=== PATIENT | female | born 1960 | race Caucasian/White ===

== ENCOUNTER 2019-04-05 12:33 | Emergency (ER) | payer MEDICARE ==
[~2019-04-05] VITALS: Ht 154.9 cm; Wt 60.9 kg
[~2019-04-05 12:33] MED LIST: COZAAR50 MG PO; CYMBALTA60 MG PO; KLONOPIN0.5 MG PO; LORTAB 7.5/325; NEXIUM40 MG PO; PRAVACHOL40 MG PO
[2019-04-05 12:36] VITALS: Ht 154.9 cm; Wt 60.9 kg
[2019-04-05] MEDS ORDERED: TOPROL XL50 MG PO (12:40)
[2019-04-05] MEDS ORDERED: VITAMIN D2000 UNIT PO (12:41)
[2019-04-05] MEDS ORDERED: LISINOPRIL5 MG PO (12:41)
[2019-04-05] MEDS ORDERED: KLONOPIN0.5 MG PO (12:41)
[2019-04-05] MEDS ORDERED: IMITREX50 MG PO (12:42)
[2019-04-05] MEDS ORDERED: MULTI-DAY VITAM1 TAB PO (12:42)
[2019-04-05] MEDS ORDERED: [UNRECOGNIZED DRUG - OTHER] (12:44)
[2019-04-05 13:20] LABS: BASOPHILS 0.7 % (0-2); EOSINOPHILS 3.1 % (0-7); HEMOGLOBIN 12.8 g/dL (12-16); IMMATURE GRANULOCYTES 0.2 % (0-5); LYMPHOCYTES 40.5 % (15-50); MCH 31.6 pg (26.0-34.0); MCHC 34.6 g/dL (31.0-37.0); MCV 91.4 fL (80.0-100.0); MEAN PLATELET VOLUME 8.2 fL (7.4-10.4); NEUTROPHILS 44.5 % (40-80); PLATELET COUNT 223 10x3/uL (130-400); RBC 4.05 10x6/uL (4.00-5.40); RDW 13.1 % (11.5-14.5); WBC 4.5 10x3/uL (4.8-10.8)
[2019-04-05 13:34] LABS: APPEARANCE CLEAR (CLEAR); BILIRUBIN NEGATIVE (NEGATIVE); COLOR YELLOW (YELLOW); GLUCOSE NEGATIVE (NEGATIVE); KETONE NEGATIVE (NEGATIVE); NITRITE NEGATIVE (NEGATIVE); PROTEIN NEGATIVE (NEGATIVE); UROBILINOGEN NORMAL (NORMAL); WHITE CELLS - URINE 0-5 /hpf (0-5)
[2019-04-05 13:34] LABS: ALBUMIN 3.8 g/dL (3.4-5.0); ALKALINE PHOSPHATASE 59 U/L (46-116); ALT (SGPT) 30 U/L (10-68); CALC OSMOLALITY 267 mosm/kg (275-300); CALCIUM 8.6 mg/dL (8.5-10.1); CARBON DIOXIDE 28.7 mmol/L (21.0-32.0); CHLORIDE - SERUM 100 mmol/L (98-107); CREATININE - SERUM 0.7 mg/dL (0.6-1.3); GLUCOSE 89 mg/dL (74-106); POTASSIUM - SERUM 4.4 mmol/L (3.5-5.1); PROTEIN - SERUM 6.8 g/dL (6.4-8.2); SODIUM 136 mmol/L (136-145); UREA NITROGEN 4 mg/dL (7-18); eGFR NON AFRICAN AMERICAN > 90 mL/min (90-120)
[2019-04-05 13:35] LABS: BACTERIA MODERATE /hpf (NONE SEEN); EPITHELIAL CELLS 0-5 /hpf (0-5); MUCUS <1+ /lpf (NONE SEEN)
[2019-04-05 13:37] LABS: AMYLASE - SERUM 74 U/L (25-115); LIPASE 217 U/L (73-393); TROPONIN-I < 0.017 ng/mL (0.000-0.060)
[2019-04-05] MEDS ORDERED: KEFLEX500 MG PO (15:12)
[2019-04-05] MEDS ORDERED: MACROBID100 MG PO (15:12)
[2019-04-05] MEDS ORDERED: PHENAZOPYRIDIN200 MG PO (15:13)
[2019-04-05 15:54] VITALS: BP 158/73
== END 2019-04-05 15:55 | disposition home or self-care (01) ==
LOC: D.ER 12:33
PROVIDERS: Family Medicine
DX: R10.30 Lower abdominal pain, unspecified (principal); R16.0 Hepatomegaly, not elsewhere classified; R11.0 Nausea; N39.0 Urinary tract infection, site not specified

== ENCOUNTER → 2019-04-14 07:39 | Outpatient (CLI) | payer MEDICARE, MEDICAID ==
[2019-04-05 12:36] VITALS: BMI 25.3
[~2019-04-14 07:39] MED LIST changes: +IMITREX50 MG PO; +KEFLEX500 MG PO; +LISINOPRIL5 MG PO; +MACROBID100 MG PO; +MULTI-DAY VITAM1 TAB PO; +PHENAZOPYRIDIN200 MG PO; +TOPROL XL50 MG PO; +VITAMIN D2000 UNIT PO; +[UNRECOGNIZED DRUG - OTHER]
== END | disposition home or self-care (01) ==
LOC: D.MRI 07:39
PROVIDERS: ATTEND Emergency Medicine
DX: K76.89 Other specified diseases of liver (principal)

== ENCOUNTER → 2019-05-02 14:45 | Outpatient (CLI) | payer MEDICARE, MEDICAID ==
[2019-04-05 12:36] VITALS: BMI 25.3
[~2019-05-02 14:45] MED LIST changes: +ERENUMAB IM; +HYDROCODON-ACE1 EAC7 PO
== END | disposition home or self-care (01) ==
LOC: D.RAD 14:45
PROVIDERS: ATTEND Internal Medicine Gastroenterology
DX: R11.0 Nausea (principal); R12 Heartburn; R10.11 Right upper quadrant pain

== ENCOUNTER → 2019-05-16 08:18 | Outpatient (CLI) | payer MEDICARE, MEDICAID ==
[2019-04-05 12:36] VITALS: BMI 25.3
== END | disposition home or self-care (01) ==
LOC: D.US 05-05 13:30 → D.NM 05-13 09:00 → D.US 05-13 10:30
PROVIDERS: ATTEND Internal Medicine Gastroenterology
DX: R11.0 Nausea (principal); R10.11 Right upper quadrant pain

== ENCOUNTER 2019-06-22 05:56 | Day surgery (SDC) | payer MEDICARE, MEDICAID ==
[~2019-06-22] VITALS: Ht 154.9 cm; Wt 60.3 kg
[~2019-06-22 05:56] MED LIST changes: -HYDROCODON-ACE1 EAC7 PO
[2019-06-22 06:15] LABS: HEMATOCRIT 38.6 % (36.0-48.0); MCH 31.7 pg (26.0-34.0); MCHC 33.7 g/dL (31.0-37.0); MCV 94.1 fL (80.0-100.0); MEAN PLATELET VOLUME 8.3 fL (7.4-10.4); RBC 4.1 10x6/uL (4.00-5.40); RDW 12.8 % (11.5-14.5); WBC 3.8 10x3/uL (4.8-10.8)
[2019-06-22 07:09] VITALS: BP 121/57; Ht 154.9 cm; Wt 60.3 kg
[2019-06-22] MEDS ORDERED: HYDROCODON-ACE1 EAC7 PO (09:16)
== END 2019-06-22 11:50 | disposition home or self-care (01) ==
LOC: D.OPS 05:56 → D.PAN 08:00 → D.OPS 08:00
PROVIDERS: Anesthesiology; ATTEND Surgery
DX: K82.8 Other specified diseases of gallbladder (principal); I10 Essential (primary) hypertension